=== PATIENT | male | born 1975 | race Caucasian/White ===

== ENCOUNTER → 2017-02-16 | Outpatient (CLI) | payer BC | LOC: FIMAGING 08:49 | PROVIDERS: ATTEND Family Medicine | DX: S69.90XA Unspecified injury of unspecified wrist, hand and finger(s), initial encounter (principal); V18.4XXA Pedal cycle driver injured in noncollision transport accident in traffic accident, initial encounter; Y93.55 Activity, bike riding ==

== ENCOUNTER → 2018-01-16 | Outpatient (CLI) | payer BC | LOC: FLAB 10:24 | PROVIDERS: ATTEND Physician Assistant Medical | DX: R07.81 Pleurodynia (principal); R93.7 Abnormal findings on diagnostic imaging of other parts of musculoskeletal system; Y93.55 Activity, bike riding ==